=== PATIENT | female | born 1950 | race Caucasian/White ===

== ENCOUNTER → 2022-01-17 | Outpatient (CLI) | payer MEDICARE, SELFPAY ==
--- NOTE | 2022-01-17 14:28 | CT_ITS ---
STUDY: CT SCAN OF LOWER EXTREMITY RIGHT REASON FOR EXAM: Female, 71 years old. VARUS DEFORMITY PRE OP.[facility] protocol. RADIATION DOSAGE (If Supplied By Facility): CTDIvol = ( 19.22 ) mGy, DLP = ( 1331.01 ) mGycm. Individualized dose optimization techniques were used for this CT.? TECHNIQUE: Multiple axial tomographic images of the right hip joint, right knee joint and ankle joint were obtained. Coronal and sagittal reconstruction was obtained as well. COMPARISON: None. FINDINGS: Imaging of the right hip joint was performed. There is a [id number] degree of joint space narrowing of the right hip. Mild degree of degenerative spur formation along the inferior medial aspect of the right acetabulum. Imaging of the right knee joint was obtained. There is a marked degree of joint space narrowing of the medial compartment of knee joint with degenerative spur formation along the medial femoral condyle and medial tibial plateau. Mild degree of joint space narrowing involving the patellofemoral joint. Small joint effusion. Imaging of the ankle joint was obtained. The ankle mortise is symmetrical. No acute abnormality is seen. CT/Extremity Lower without Contra IMPRESSION: Marked degree of joint space narrowing with degenerative spur formation of the medial compartment of knee joint. Small joint effusion. Osteoarthritis of the patellofemoral joint. Electronically Signed: Wilian Merino MD at 15:15 EDT ,
== END | disposition home or self-care (01) ==
PROVIDERS: PCP Family Medicine; Referring Provider Specialist; Visit Provider Specialist
DX: M21.161 Varus deformity, not elsewhere classified, right knee (principal); M25.561 Pain in right knee; G89.29 Other chronic pain
CPT/HCPCS: 73700

== ENCOUNTER 2022-02-05 06:44 | Observation (INO) | payer MEDICARE, SELFPAY ==
--- NOTE | 2022-01-17 14:36 | RAD_ITS ---
STUDY: X-RAY CHEST REASON FOR EXAM: Female, 71 years old. PRE OP TECHNIQUE: Frontal and lateral views of the chest. COMPARISON: None. FINDINGS: The lungs are clear and expanded. There is no demonstrated pleural abnormality. Normal size heart. Normal mediastinum and kyleigh. Normal visualized pulmonary arteries. Normal visualized aortic arch and descending thoracic aorta. There are diffuse degenerative changes of the visualized thoracic spine. Normal visualized ribs, clavicles, and shoulders. There is no demonstrated abnormality of the visualized soft tissue structures of the upper abdomen. RAD/Chest PA and Lateral IMPRESSION: No acute cardiopulmonary process. Electronically Signed: Debbi Thomas MD at 19:38 EDT ,
[2022-01-17 15:36] LABS: Absolute Lymphocyte Count 3.42 X10^3/uL (0.83-4.51); Absolute Neutrophil Count 4.8 X10^3/uL (2.0-7.7); Basophil# 0.05 X10^3/uL; Basophil% 0.6 % (0-1); Eosinophil# 0.15 X10^3/uL; Eosinophils% 1.7 % (0-5); Hematocrit 38.1 % (37-47); Hemoglobin 12.3 g/dL (12.0-15.0); Lymphocyte # 3.42 X10^3/ul (0.83-4.51); Lymphocyte % 37.7 % (19-41); Mean Corp Hgb Conc 32.3 g/dL (32-36); Mean Corpuscular Hgb 27.5 pg (27.0-32.0); Mean Corpuscular Volume 85.2 fL (81-99); Mean Platelet Vol. 8.9 fl (6.2-12.0); Monocyte# 0.66 X10^3/uL; Monocyte% 7.3 % (0-10); NRBC Flagged by Analyzer 0 % (0-5); Neutrophil # 4.76 X10^3/uL (2.7-7.7); Neutrophil % 52.4 % (47-70); Platelet Count 347 K/mm3 (150-450); RBC Distribution Width CV 13.9 % (11.6-14.6); RBC Distribution Width SD 43.6 fl (35.1-43.9); Red Blood Count 4.47 M/mm3 (4.2-5.4); White Blood Count 9.1 K/mm3 (4.4-11.0)
[2022-01-17 15:56] LABS: Hemoglobin A1c 5.8 % (3.8-5.6)
[2022-01-17 16:00] LABS: Anion Gap 6 (5-15); BUN 13 mg/dL (7-18); BUN/Creat Ratio 19.1 RATIO (10-20); Calcium,Total 9.3 mg/dL (8.5-10.1); Chloride 103 mmol/L (98-107); Creatinine, Serum 0.68 mg/dL (0.55-1.02); EST Glomerular Filtration Rate 90 mL/min (>60); Est Glom Filt Rate - Afr Amer 109 mL/min (>60); Glucose 96 mg/dL (74-106); Potassium 3.9 mmol/L (3.5-5.1); Sodium Level 138 mmol/L (136-145)
--- NOTE | 2022-01-24 09:10 | EKG12_ITS ---
Test Reason : PRE OP Blood Pressure : / mmHG Vent. Rate : 076 BPM Atrial Rate : 076 BPM P-R Int : 160 ms QRS Dur : 076 ms QT Int : 364 ms P-R-T Axes : 049 -04 030 degrees QTc Int : 409 ms Normal sinus rhythm Normal ECG Confirmed by VIRGILIO WEST, MICHAEL ([id number]), production editor KRYSTAL ROSSI ([id number]) on 01/24/2022 1:05:02 PM Referred By: MARIE Confirmed By:MICHAEL POOLE MD
[2022-01-24 10:04] LABS: Magnesium 2.5 mg/dL (1.6-2.6)
[2022-02-05] VITALS (11 sets, daily range): BP systolic 105–146; BP diastolic 50–79; PULSE 54–81; RESP 12–18; TEMP 36.1–37; O2SAT 96–100; BMI 34.3
--- NOTE | 2022-02-05 | KNEE_PTH ---
PATIENT: ROB ABREU LOC: MS3 U#:[id number] AGE/SX: 71/F ROOM: [facility] RE02/05/[address]: Dr. Chris Hampton MD : 1950 BED: 1 DIS: 02/06/2022 SPEC #: [id number] RECD: 02/05/22 11:54 STATUS: BIBI WYATT #: [id number] JOHN: 02/05/22 00:[address]: Chris Hampton DEPT: SURGICAL PATHOLOGY RECD BY: Jeff June ENTERED: 02/05/22 11:55 SP TYPE: TOTAL KNEE OTHR DR: MD Chika Stephen PA-C Tissues: Knee, NOS Procedures: Decalcification bone/plaque Surgery Specimen Level IV HEADER OPERATION: ERAS, total knee replacement robotic arm assist PRE-OP DIAGNOSIS: Right knee primary osteoarthritis TISSUE SUBMITTED: Debrided bone and tissue right knee MICROSCOPIC DIAGNOSIS Bone and tissue of right knee, total knee resection: Severe degenerative joint disease. AM:micha 02/11/2022 MICROSCOPIC DESCRIPTION Slides are reviewed. GROSS DESCRIPTION Received is one container designated debrided bone and tissue right knee. The specimen consists of multiple fragments of jensen-yellow bone measuring in aggregate 10 x 8 x 3 cm. Also in the specimen container are two pieces of cartilaginous tissue measuring in aggregate 7 x 3 x 1 cm. A number of bony fragments contain articular surfaces consistent with tibial plateau and femoral condyle and displaying prominent osteophyte formation, eburnation, and bone erosion. [employer] Operations Staff Officer sections are submitted in two cassettes as follows: 1 - soft tissue, 2 - bone after decalcification. / SJ:micha 02/05/2022 TC:5 [facility]: [id number], [id number]
[2022-02-05 06:06] LABS: Bedside Glucose 83 mg/dL (74-106)
[2022-02-05] MEDS: Lactated Ringers 1,000 ML 999 ML IV ×2 (06:11→09:33)
[2022-02-05] MEDS: Acetaminophen 500 MG Tablet 1000 MG PO ×3 (06:12→22:30)
[2022-02-05] MEDS: Celecoxib 200 MG Capsule 400 MG PO (06:12)
[2022-02-05] MEDS: Gabapentin 600 MG Tablet PO (06:12)
--- NOTE | 2022-02-05 06:43 | OP.PCM_ITS ---
Report of Operation Date of Procedure: 02/05/22 Pre-Operative Diagnosis: Right knee primary osteoarthritis Post-Operative Diagnosis: Right knee primary osteoarthritis Surgery/Procedure Performed:: Right minimally invasive robotic total knee replacement Description of Surgical Findings:: Stable knee with good patella tracking Surgeon: Chris Hampton software engineer web services: Sai Carroll Type of Anesthesia: Spinal Anesthesiologist: Dionicio Pierre Special Medications: 2 g Ancef, 1 g TXA at incision, 1 g TXA closure, 10 mg Decadron, joint cocktail (5 mg Duramorph, 30 mL of 0.5% Ropivicaine, 1000 units of epinephrine, 30 mg of Toradol) Specimen's removed: Bony cuts Estimated Blood Loss (mL): 50 Fluids Replaced: 1200 mL crystalloid Description of Procedure: Implants used: 1. Claremont size 1 triathlon cruciate retaining distal femoral press-fit component 2. Janna size 2 press-fit tritanium tibial baseplate 3. Janna X3 9 mm CS polyethylene 4. [place] X3 29 mm asymmetric patella Brief history operative indications: 71-year-old f with history of right knee osteoarthritis with radiographic findings with loss of joint space, osteophyte formation and subchondral sclerosis. Failed conservative measures as mentioned in the H&P. Discussion of total knee arthroplasty as well as risk and benefits were discussed the patient including but not limited to blood loss, DVTs, PEs, neurovascular damage, general risk of anesthesia including loss of life, and stiffness or instability were discussed with patient. Patient demonstrated understanding and was able to sign informed consent. Procedure: On the date of procedure patient's right lower extremity was marked in the preoperative area. The patient was then taken back to the operating room where the patient was placed on the table in the supine position. All bony prominences were identified a well-padded. Anesthesia assumed control of the C-spine and airway and remained controlled throughout the remainder of the procedure. A tourniquet was placed on the right upper thigh and the leg was prepped in a sterile fashion. The surgeon then scrubbed at this time .Upon reentering the room right lower extremity was draped in a standard orthopedic fashion. A timeout was then called and everyone agreed upon the side, the site, the procedure to be performed, patient's identity and antibiotics given. Esmarch bandage was used to exsanguinate the extremity and the tourniquet was placed up to 250 mmHg with the knee in flexion. A midline skin incision was made and sharp dissection was taken down through skin subcutaneous tissue and fat. The standard medial parapatellar incision was made and the patella was subluxed laterally. An Appropriate deep MCL release was done and the fat pad was resected. Our attention was then directed to the patella. The patella was everted and a flat resection was made. The knee was then flexed up in 2 femoral pins were placed inside the incision and 2 tibial pins were placed outside the incision in the medial tibia bicortically. Once this was completed the 2 checkpoints in the femur and tibia were placed. Knee was then flexed up and the bony landmarks were registered. Once this was completed knee was taken through range of motion and manually stressed allowing us to a plan for an appropriate tibial cut. The robotic arm was brought into the field sterilely and checkpoint and saw were registered. Based on the patient's deformity the tibial cut was made in 2 degrees varus. At this time the tensioner was then placed in the joint and ligament tension was checked at 90 degrees and full extension. Based on the patient's ligamentous tension appropriate adjustments were made to the operative plan and ligament releases were done. Once we were happy with our operative plan with balanced flexion and extension gaps our attention was directed to the femur. The robot was brought into the field sterilely and registered. Posterior condylar cuts, anterior chamfer cuts and anterior cuts were appropriately made for a size 1 femur. When these were completed the saws were switched out in the distal femoral and posterior chamfer cuts were made. Protecting the soft tissue throughout this time. A size 2 tibial base plate was selected. the knee was flexed to 90 degrees and the soft tissues and posterior osteophytes were removed from the joint. 40 cc of the periarticular injection was injected into the posterior medial corner of the joint. The appropriate trials were then placed on the femur and tibia. A trial polyethylene was trialed to ensure proper balancing and stability of the knee. The appropriate tibial internal rotation was then marked with a bovie. Our attention was then directed to the patella. The lug holes were drilled and the patella trial was placed. Patellar tracking was checked and deemed appropriate. Once we were happy lug holes were drilled for the femur and trial components were removed. the tibia was subluxed and pinned into place and the keel was punched and drilled appropriately. Final components were verified and opened, and cement was mixed in a vacuum. Claremont Simplex cement was used. The wound was copiously irrigated with normal saline. When the cement was ready the components were impacted into place starting with the tibia, femur the femur did not have a snug fit so it was cemented and finally cementing the patella. The trial poly component was placed and the knee was placed in full extension. All excess cement was removed in the process. Once the cement had cured the tracking, alignment and balance were verified and a size [] polyethylene component was placed. Once the final components were placed a 3-minute dilute Betadine lavage was performed followed by an Irrisept lavage was performed and the wound was copiously irrigated with normal saline solution and the periarticular injection was given. The wound was closed in a layer prescott fashion using #1 vicryl interrupted sutures for the arthrotomy, 2-0 interrupted Vicryl suture for the subcuticular layer and dena for final skin closure. A sterile compressive dressing was then placed. The patient was then awakened from anesthesia, transferred to the [facility] and transferred to the PACU for recovery. Post op plan DVT ppx: ASA 81mg BID, thigh high compression stockings Follow up: in office in 2 weeks for wound check PT: to start POD #0 at hospital, outpatient PT should be arranged. My physician logging assistant was a vital part of this case. He was important in appropriate retraction during the case, and protection of soft tissues during bony cuts. His intimate knowledge of the case and my steps aided in safe and expedient completion of the procedure as well as appropriate position of the leg during the case. He was also vital in assisting with closure under my direct supervision. Due to the complexity of this case robotic arm was used to assist in the surgery to improve accuracy and clinical outcomes. Complications No intraoperative complications Admit VTE Documentation VTE Present on Admission: No VTE Mechan Device Prophylaxis: SCD's and Thigh High PARDEEP Hose VTE Pharm Prophylaxis ordered?: Yes
--- NOTE | 2022-02-05 06:44 | RAD_ITS ---
STUDY: X-RAY - RIGHT KNEE REASON FOR EXAM: Postoperative evaluation of right total knee arthroplasty. TECHNIQUE: 2 view(s) of the knee. COMPARISON: CT images 01/17/2022. FINDINGS: There is a right total knee arthroplasty without evidence of complication. There is postoperative gas in the soft tissues and overlying skin dena. RAD/Knee 1 or 2 Views IMPRESSION: Uncomplicated right total knee arthroplasty. Electronically Signed: Narendra Zelaya MD at 12:58 EDT ,
[2022-02-05] MEDS: Cefazolin 2 GM in 0.9% Normal Saline 100 ML IV (07:27)
[2022-02-05] MEDS: TXA 1000mg in NS100 100ml (IVPB at Incision) 660 MG IV (07:37)
[2022-02-05] MEDS: TXA 1000mg in NS100 100ml (IVPB at Closure) 660 MG IV (08:39)
[2022-02-05] MEDS: Lactated Ringers 1,000 ML 125 ML IV (10:28)
--- NOTE | 2022-02-05 11:08 | PCM.PN.HOSP ---
Subjective Subjective Consult for post-op medical management: 71-year-old female with no past medical history who comes in for elective right total knee replacement. Patient has been having knee pain, has had outpatient knee injections with no improvement. She is lately having difficulty completing her activities of daily living. Her knee pain is affecting her sleep at night. Patient underwent a right minimally invasive robotic total knee replacement today. She was seen in the immediate postop period. Denied any new complaints. Denied chest pain or dizziness or palpitation. Her pain was fairly controlled. There was a cooling mat over her right knee. Objective Data Objective Data Vital Signs: Vital Signs Temp Pulse Resp BP Pulse Ox 98.3 F 58 L 12 112/54 L 100 02/05/22 10:30 02/05/22 10:30 02/05/22 10:30 02/05/22 10:30 02/05/22 10:30 Oxygen Flow Rate (L/min) 4 Oxygen Delivery Method Nasal Cannula Weight: 77.111 kg Body Mass Index (BMI) 34.3 Intake & Output: Intake and Output for Last 24 Hours 02/03/22 02/04/22 02/05/22 23:59 23:59 23:59 Intake Total 2432 / 2432 Balance 2432 / 2432 Lab / Micro Data Result Diagrams: 01/17/22 14:55 01/17/22 14:55 Labs: Laboratory Results - last 24 hr 02/05/22 05:58: POC Glucose 83 Micro: Microbiology 01/17/22 14:55 Swab (Method) Nasal Screen MRSA/MSSA - Final Physical Exam Narrative Physical exam: General: Alert, Oriented x3, Cooperative, No apparent distress HEENT: Atraumatic Oral: Moist Mucosa Neck: Supple Lungs: Clear to auscultation Cardiovascular: HS I+II, regular, no murmurs Abdomen: Bowel Sounds Present, Soft, Non Tender Extremities: No edema,cooling mat over the right knee, PARDEEP hoses on both legs Skin: No rashes, No breakdown Neurological: Grossly intact Psych/Mental Status: Appropriate Assessment & Plan Assessment/Plan (1) Status post knee replacement: QUALIFIERS: Laterality: right Qualified Code(s): Z96.651 - Presence of right artificial knee joint PLAN: 1. POD #0, status post right minimally invasive robotic total knee replacement Pain is controlled; continue current pain regimen PT/OT to evaluate and treat Orthopedic surgery is following 2. DVT prophylaxis - SCDs/PARDEEP kristan Charges/Coding Visit Charges Inpatient E&M: 69958 Subs Hosp L2
[2022-02-05] MEDS: Senna/Docusate Sodium 1 Tablet 2 TABLET PO ×2 (13:44→22:29)
[2022-02-05] MEDS: Vitamin E 400 UNITS Capsule PO (13:44)
[2022-02-05] MEDS: Famotidine 20 MG Tablet PO (13:44)
[2022-02-05] MEDS: Cholecalciferol (Vit D3) 125 MCG CAPSULE (5,000 UNITS) PO (13:44)
[2022-02-05] MEDS: Ensure Surgery 237 ML LIQUID PO (13:45)
[2022-02-05] MEDS: oxyCODONE 5 MG Tablet PO (19:25)
[2022-02-05] MEDS: Aspirin 81 MG TAB.CHEW PO (22:30)
[2022-02-05] MEDS: Ketorolac 15 MG/ML Vial IV (22:36)
[2022-02-06 02:36] VITALS: BP 121/74; PULSE 70; RESP 18; TEMP 36.8; O2SAT 96
[2022-02-06] MEDS: 0.9% Saline Lock 10 ML Syringe IV (02:45)
[2022-02-06] MEDS: oxyCODONE 5 MG Tablet PO ×2 (05:50→11:48)
[2022-02-06] MEDS: Acetaminophen 500 MG Tablet 1000 MG PO ×2 (05:51→13:36)
[2022-02-06 05:57] VITALS: BP 116/74; PULSE 74; RESP 18; TEMP 36.4; O2SAT 96
[2022-02-06 06:01] LABS: Hematocrit 31.8 % (37-47); Hemoglobin 9.9 g/dL (12.0-15.0); Mean Corp Hgb Conc 31.1 g/dL (32-36); Mean Corpuscular Hgb 27.2 pg (27.0-32.0); Mean Corpuscular Volume 87.4 fL (81-99); Mean Platelet Vol. 8.5 fl (6.2-12.0); Platelet Count 243 K/mm3 (150-450); RBC Distribution Width CV 14.1 % (11.6-14.6); RBC Distribution Width SD 45.4 fl (35.1-43.9); Red Blood Count 3.64 M/mm3 (4.2-5.4)
[2022-02-06 06:25] LABS: Anion Gap 3 (5-15); BUN 10 mg/dL (7-18); BUN/Creat Ratio 15.2 RATIO (10-20); Calcium,Total 8.6 mg/dL (8.5-10.1); Chloride 107 mmol/L (98-107); Creatinine, Serum 0.66 mg/dL (0.55-1.02); EST Glomerular Filtration Rate 94 mL/min (>60); Est Glom Filt Rate - Afr Amer 114 mL/min (>60); Estimated Creatinine Clearance 63.72 ml/min; Glucose 106 mg/dL (74-106); Potassium 4.1 mmol/L (3.5-5.1); Sodium Level 139 mmol/L (136-145)
--- NOTE | 2022-02-06 07:02 | PCM.PN.HOSP ---
Subjective Subjective Follow-up on postop medical management for right total knee replacement: Patient was seen and examined. She denied any new complains. Denies any fever, chills, chest pain, palpitations. Objective Data Objective Data Vital Signs: Vital Signs Temp Pulse Resp BP Pulse Ox 97.5 F L 74 18 116/74 96 02/06/22 05:57 02/06/22 05:57 02/06/22 05:57 02/06/22 05:57 02/06/22 05:57 Oxygen Flow Rate (L/min) 4 Oxygen Delivery Method Room Air Weight: 77.111 kg Body Mass Index (BMI) 34.3 Intake & Output: Intake and Output for Last 24 Hours 02/04/22 02/05/22 02/06/22 23:59 23:59 23:59 Intake Total 3333.67 / 3333.67 200 / 200 Output Total 400 / 400 Balance 2933.67 / 2933.67 200 / 200 Lab / Micro Data Result Diagrams: 02/06/22 05:37 02/06/22 05:37 Labs: Laboratory Results - last 24 hr 02/06/22 05:37: WBC 7.0, RBC 3.64 L, Hgb 9.9 L, Hct 31.8 L, MCV 87.4, MCH 27.2, MCHC 31.1 L, RDW Std Deviation 45.4 H, RDW Coeff of Peri 14.1, Plt Count 243, MPV 8.5 02/06/22 05:37: Sodium 139, Potassium 4.1, Chloride 107, Carbon Dioxide 29.0, Anion Gap 3 L, BUN 10, Creatinine 0.66, Estim Creat Clear Calc 63.72, Est GFR (MDRD) Af Amer 114, Est GFR (MDRD) Non-Af 94, BUN/Creatinine Ratio 15.2, Glucose 106, Calcium 8.6 Micro: Microbiology 01/17/22 14:55 Swab (Method) Nasal Screen MRSA/MSSA - Final Radiography Diagnostic Testing: Radiology Impression Knee X-Ray 02/05/22 06:44 IMPRESSION: Uncomplicated right total knee arthroplasty. Electronically Signed: Narendra Zelaya MD at 12:58 EDT , Physical Exam Narrative Physical exam: General: Alert, Oriented x3, Cooperative, no apparent distress HEENT: Atraumatic Oral: Moist Mucosa Neck: Supple Lungs: Clear to auscultation Cardiovascular: HS I+II, regular, no murmurs Abdomen: Bowel Sounds Present, Soft, Non Tender Extremities: No edema, cooling mat over the right knee, PARDEEP hoses on both legs Skin: No rashes, No breakdown Neurological: Grossly intact Psych/Mental Status: Appropriate Assessment & Plan Assessment/Plan (1) Status post knee replacement: QUALIFIERS: Laterality: right Qualified Code(s): Z96.651 - Presence of right artificial knee joint PLAN: 1. POD #1, status post right minimally invasive robotic total knee replacement Pain is controlled; continue current pain regimen PT/OT to evaluate and treat Orthopedic surgery is following 2. DVT prophylaxis - SCDs/PARDEEP hoses Charges/Coding Visit Charges Inpatient E&M: 86521 Subs Hosp L2
[2022-02-06 08:00] VITALS: BP 102/62; PULSE 70; RESP 16; TEMP 36.8; O2SAT 98
[2022-02-06] MEDS: Senna/Docusate Sodium 1 Tablet 2 TABLET PO (08:46)
[2022-02-06] MEDS: Famotidine 20 MG Tablet PO (08:46)
[2022-02-06] MEDS: Aspirin 81 MG TAB.CHEW PO (08:46)
[2022-02-06] MEDS: Vitamin E 400 UNITS Capsule PO (08:47)
[2022-02-06] MEDS: Cholecalciferol (Vit D3) 125 MCG CAPSULE (5,000 UNITS) PO (08:47)
[2022-02-06] MEDS: Ensure Surgery 237 ML LIQUID PO ×2 (08:48→11:48)
--- NOTE | 2022-02-06 10:28 | PCM.PN.ORT ---
Subjective Subjective The patient was sitting in bedside chair upon examination. Patient denies any chest pain, shortness of breath, dizziness, lightheadedness, nausea or vomiting, or calf pain. Pain is controlled on medications. No adverse overnight events. Patient has been up walking with therapy yesterday and today. She is doing well. She has no significant complaints. Her pain is well controlled. Patient did have drop in hemoglobin but currently denies any dizziness or lightheadedness. Her vitals have been stable. Patient does wish to try to go home today as long as she is stable. Objective Data Objective Data Vital Signs: Vital Signs Temp Pulse Resp BP Pulse Ox 98.3 F 70 16 102/62 98 02/06/22 08:00 02/06/22 08:00 02/06/22 08:00 02/06/22 08:00 02/06/22 08:00 Oxygen Flow Rate (L/min) 4 Oxygen Delivery Method Room Air Weight: 77.111 kg Body Mass Index (BMI) 34.3 Intake & Output: Intake and Output for Last 24 Hours 02/04/22 02/05/22 02/06/22 23:59 23:59 23:59 Intake Total 3333.67 / 3333.67 512.25 / 512.25 Output Total 400 / 400 Balance 2933.67 / 2933.67 512.25 / 512.25 Lab / Micro Data Result Diagrams: 02/06/22 05:37 02/06/22 05:37 Labs: Laboratory Results - last 24 hr 02/06/22 05:37: WBC 7.0, RBC 3.64 L, Hgb 9.9 L, Hct 31.8 L, MCV 87.4, MCH 27.2, MCHC 31.1 L, RDW Std Deviation 45.4 H, RDW Coeff of Peri 14.1, Plt Count 243, MPV 8.5 02/06/22 05:37: Sodium 139, Potassium 4.1, Chloride 107, Carbon Dioxide 29.0, Anion Gap 3 L, BUN 10, Creatinine 0.66, Estim Creat Clear Calc 63.72, Est GFR (MDRD) Af Amer 114, Est GFR (MDRD) Non-Af 94, BUN/Creatinine Ratio 15.2, Glucose 106, Calcium 8.6 Micro: Microbiology 01/17/22 14:55 Swab (Method) Nasal Screen MRSA/MSSA - Final Radiography Diagnostic Testing: Radiology Impression Knee X-Ray 02/05/22 06:44 IMPRESSION: Uncomplicated right total knee arthroplasty. Electronically Signed: Narendra Zelaya MD at 12:58 EDT , Physical Exam Narrative Vital signs stable and afebrile. SCDs and PARDEEP hose are in place bilaterally Patient is able to plantarflex and dorsiflex actively. Sensation is intact to light touch to saphenous, sural, superficial and deep peroneal, and tibial distribution. Dressing is clean dry and intact. Negative Homans bilaterally, negative signs and symptoms of DVT. Const alert, oriented x3 and no apparent distress Assessment & Plan Assessment/Plan (1) Status post total right knee replacement: PLAN: 1. S/P right total knee arthroplasty POD #1 2. Continue Pain Medications: Tylenol, meloxicam, oxycodone. Do not take any other nonsteroidal anti-inflammatories while using meloxicam/Mobic. 3. DVT Prophylaxis: Take 81 mg aspirin twice daily for 4 weeks postoperatively for DVT prophylaxis 4. PT/OT: Weightbearing as tolerated with walker 5. H & H: 9.9/31.8, asymptomatic. Postoperative anemia secondary to acute blood loss from surgery without any intra operative complications. Per operative report there was only documented estimated blood loss 50 mL. Patient is currently asymptomatic and vitals are stable. Patient was placed on ferrous sulfate and folic acid for 2 weeks postoperatively. Recommend follow-up with primary care provider 1 to 2 weeks postoperatively for repeat lab work and follow up. 6. Encouraged Incentive Spirometry 7. Continue postoperative medical management per medicine 8. Disposition: Overall patient is doing well orthopedically. She has tolerated therapy well. Plan will be for discharge home today as long as medically stable. Prescriptions were discussed in length. She would like her prescriptions E scribed to [facility] in [facility]. She will follow-up per postop instructions. She has outpatient physical therapy established to begin tomorrow. I would also like her to see her primary care physician for follow-up with lab work. She voiced understanding and agreement. She will contact her office upon discharge with any concerns or questions. I have reviewed the [place] Automated Rx Reporting System (OARRS) report for this patient for refill pattern and other prescriber involvement as part of the appropriate surveillance for the provision of acute and chronic controlled medications. The report was requested and reviewed on the date of this entry and was considered in the prescribing process. This dictation was created using voice recognition software. Phonetic and/or grammatical errors may exist.
--- NOTE | 2022-02-06 10:30 | CASEMGMT ---
JAYJAY LUQUE Face to Face with patient for initial transition planning/care coordination assessment. RN CM introduced self and role at [facility]. Patient sitting in chair, alert and oriented. Patient willing to participate in assessment and is able to answer all questions appropriately. Care providers, pharmacy, and demographics verified. Patient wishes to discharge home with outpatient therapy. Patient states she has no further needs or concerns at this time. CM to follow for discharge planning needs that may arise. PCP: Stephany SAMUEL Specialists: rossi Hampton Pharmacy: [facility] retail at discharge. Insurance: [employer] [facility] Prescription Benefit: yes Living Will/HPOA: none LNOK: partner, Paula Mello Living Arrangements: Patient lives with partner in a 1 story home with 3 steps and railing to enter the home. Patient states she was independent prior to surgery Transportation: Partner Paula DME/HHC: Patient states she has built in shower chair, cane, walker, garb bars at home. Patient denies preivous HHC or SNF. Patient is scheduled for outpatient therapy at [facility] in [place] starting 02/07/22. Disposition Plan: Patient to discharge home with family support and follow-up plans in place. May MUNGUIA, RN, CM
--- NOTE | 2022-02-06 10:34 | DCINST_ITS ---
Discharge Instructions Diet Discharge Diet: No restrictions Activity Discharge Activity: May Not Drive (No driving for 6 weeks postoperatively and while taking narcotic pain medications.) May shower in (days): 1 (Please turn dressing away from water. Okay to get wet as long as dressing is intact to skin.) Ice area for (Minutes): 20 (Every 1-2 hours while awake[address] place barrier between the skin and ice pack.) Weight Bearing Status: Weight bearing as tolerated (With walker) Keep extremity elevated above heart level: Operative Extremity Dressing / Incision Call your doctor if your incision/area has: Continuous Slow Oozing, Sudden Increased Bleeding, Increased Pain/ Swelling, Increased Redness and Foul Smelling Discharge Call your doctor if you observe: Fever of 101 or Higher, Coldness, Increased Pain, Numbness or Tingling, Change in Color, Shortness of breath, Chest pain, Calf discomfort and Uncontrolled pain Remove Dressing in: 4 days (Okay to remove dressing on February 10, 2022) Additional Dressing/Incision Instructions:: Follow [facility] Post-op Instructions. Once postoperative dressing has been removed only use gentle soap and water over the incision. Do not use any ointments, Neosporin, salves, alcohol pads over the incision for 6 weeks postoperatively. Do not submerge underwater for 6 weeks postoperatively. Continue with PARDEEP hose/elastic stockings for 2 weeks postoperatively. May remove at nighttime but needs to be placed back on the leg during the day. Continue with ferrous sulfate and folic acid due to postoperative anemia and will follow-up with primary care provider in 1 to 2 weeks for repeat lab work. Do NOT use alcohol with narcotic pain medication. Do NOT make important decisions while taking narcotic medication. If you have problems with taking your medication (rash, itching, nausea, etc.) call the office at once. Follow Up Care Test Results: Test results from this visit will be discussed in further detail at your follow-up appointment, if applicable. Discharge Plan Admission Admit Date/Time: 02/05/22 06:44 Attending Provider: Chris Hampton Primary Care Provider: Chika Hammond Consulting Providers: Debbie Rosenbaum Discharge Orders/Prescriptions Prescriptions: New acetaminophen 500 mg Tablet 1,000 mg PO TID Qty: 100 RF: 0 aspirin 81 mg tablet,delayed release (DR/EC) 81 mg PO BID 30 Days Qty: 60 RF: 0 meloxicam 7.5 mg Tablet 7.5 mg PO BID 30 Days Qty: 60 RF: 0 famotidine 20 mg Tablet 20 mg PO DAILY Qty: 30 RF: 0 ferrous sulfate [FeroSul] 325 mg (65 mg iron) Tablet 325 mg PO 1200,1700 14 Days Qty: 28 RF: 0 folic acid 1 mg Tablet 1 mg PO DAILY 14 Days Qty: 14 RF: 0 oxycodone 5 mg Tablet 5 - 10 mg PO Q4H PRN PRN (Reason: Pain Score 4-10) 5 Days Qty: 60 RF: 0 sennosides-docusate sodium [Stool Softener-Stimulant Laxat] 8.6-50 mg Tablet 2 tab PO BID Qty: 20 RF: 0 Continued vitamin E 400 UNIT capsule 268 unit PO DAILY RF: 0 Calcium Magnesium 1 EACH tablet 1 ea PO DAILY RF: 0 cholecalciferol (vitamin D3) [Vitamin D3] 125 mcg (5,000 unit) Tablet 125 mcg PO DAILY RF: 0 Other Ambulatory Orders: 12 Lead EKG (Routine) Location: None Selected Ordered By: Dr. Dionicio Pierre Referrals / Follow Up: Physical,Therapy [Other] - 02/07/22 10:00 am Chika Hammond PA-C [Primary Care Provider] - (Follow-up in 1 to 2 weeks for repeat lab work and follow-up from postoperative anemia) Moi Montelongo PA-C [PHYSICIAN RAIL TRANSPORTATION OPERATOR] - 02/20/22 2:45 pm Disposition Disposition (needs filled in before D/C Order can be placed): Home, Self Care
[2022-02-06] MEDS: Folic Acid 1 MG Tablet PO (11:49)
[2022-02-06] MEDS: Ferrous Sulfate 325 MG Tablet PO (11:49)
[2022-02-06 11:53] VITALS: BP 125/75; PULSE 88; RESP 16; TEMP 36.7; O2SAT 95
== END 2022-02-06 14:07 | disposition home or self-care (01) ==
LOC: SDC 08:53 → MS3 08:53
PROVIDERS: Anesthesiology; Admitting Provider Specialist; PCP Family Medicine; Referring Provider Specialist; Visit Provider Specialist
PROC: 0SRC0JZ Replacement of Right Knee Joint with Synthetic Substitute, Open Approach (ICD-10-PCS; CPT 27447; principal; 2022-02-05 07:00)
DX: M17.11 Unilateral primary osteoarthritis, right knee (principal); H54.7 Unspecified visual loss; Z87.19 Personal history of other diseases of the digestive system; Z01.818 Encounter for other preprocedural examination; Z79.899 Other long term (current) drug therapy
CPT/HCPCS: 27447; S2900; 01402; 64447; 36415; 71046; 73560; 80048; 82040; 82962; 83036; 83735; 85025; 85027; 87081; 88305; 88311; 93005; 96365; 96366; 96375; 97110; 97116; 97162; 97166; 97530; 97535; 99218; 99251; C1776; J7120; A4216; G0378; G0463; J3475

== ENCOUNTER → 2023-08-21 | Outpatient (CLI) | payer MEDICARE, SELFPAY ==
--- NOTE | 2023-08-21 08:32 | US_ITS ---
INDICATION: RUQ and epigastric PAIN EXAMINATION: Ultrasound US Abdomen RUQ (limited) TECHNIQUE: Pryor-scale and color Doppler imaging was performed of the abdomen. COMPARISON: FINDINGS: LIVER: There is normal echotexture measuring 14.5 cm. No focal hepatic lesion. No intrahepatic biliary ductal dilatation. There is no free fluid. GALLBLADDER AND BILIARY TREE: No shadowing gallstone, pericholecystic fluid or gallbladder wall thickening is demonstrated. The proximal common bile duct measures 7 mm, which is borderline in size. SONOGRAPHIC TURNER''S SIGN: Negative. PANCREAS: No focal abnormality is demonstrated in the pancreas. No pancreatic ductal dilatation. RIGHT KIDNEY: 11.5 x 5.1 x 4.9 cm. The cortex is 17 mm. There is no hydronephrosis. No shadowing calculus, focal lesion, or perinephric collection is demonstrated. VESSELS: Submitted longitudinal images of the intra-abdominal aorta demonstrate no gross abnormalities and are unremarkable. The IVC is patent. US/Abdomen Limited IMPRESSION: Borderline common bile duct. No cholelithiasis. Electronically Signed: Jaison Lopez DO at 19:03 EST ,
== END | disposition home or self-care (01) ==
PROVIDERS: PCP Family Medicine; Referring Provider Family Medicine; Visit Provider Family Medicine
DX: R10.11 Right upper quadrant pain (principal)
CPT/HCPCS: 76705

== ENCOUNTER → 2024-02-29 | Outpatient (CLI) | payer MEDICARE, SELFPAY ==
[2024-02-29 11:16] LABS: Absolute Lymphocyte Count 2.22 X10^3/uL (0.83-4.51); Absolute Neutrophil Count 5.4 X10^3/uL (2.0-7.7); Basophil# 0.06 X10^3/uL; Basophil% 0.7 % (0-1); Eosinophil# 0.27 X10^3/uL; Eosinophils% 3.1 % (0-5); Hematocrit 36.4 % (37-47); Hemoglobin 11.3 g/dL (12.0-15.0); Lymphocyte # 2.22 X10^3/ul (0.83-4.51); Lymphocyte % 25.4 % (19-41); Mean Corpuscular Hgb 27.1 pg (27.0-32.0); Mean Corpuscular Volume 87.3 fL (81-99); Mean Platelet Vol. 8.3 fl (6.2-12.0); Monocyte# 0.75 X10^3/uL; Monocyte% 8.6 % (0-10); NRBC Flagged by Analyzer 0 % (0-5); Neutrophil % 61.7 % (47-70); Platelet Count 408 K/mm3 (150-450); RBC Distribution Width CV 15.2 % (11.6-14.6); RBC Distribution Width SD 48.5 fl (35.1-43.9); Red Blood Count 4.17 M/mm3 (4.2-5.4); White Blood Count 8.7 K/mm3 (4.4-11.0)
== END | disposition home or self-care (01) ==
LOC: LAB 10:29
PROVIDERS: PCP Family Medicine; Referring Provider Family Medicine; Visit Provider Family Medicine
DX: D64.9 Anemia, unspecified (principal)
CPT/HCPCS: 36415; 85025